=== PATIENT | female | born 1965 | race Caucasian/White ===

== ENCOUNTER 2022-08-02 17:26 | Emergency (ER) | payer BC, SELFPAY ==
[2022-08-02 17:33] VITALS: BP 123/76; PULSE 130; RESP 22; TEMP 36.4; O2SAT 100; BMI 23.8
--- NOTE | 2022-08-02 17:45 | DI.RAD.S_ITS ---
PROCEDURE: XR KNEE LT 3V INDICATIONS: fall with knee pain TECHNIQUE: Three views of the knee were acquired. COMPARISON: None. FINDINGS: Bones: Difficulty positioning the patient appropriately. There is a cortical irregularity along the lateral aspect of the distal femoral condyle which is of uncertain chronicity. There is an oblique lucent fracture plane across the proximal fibular metadiaphysis with bridging callus. Mild depression along the medial aspect of the lateral tibial plateau without associated visible fracture plane. Soft tissues: No joint effusion. No suspicious soft tissue calcifications. IMPRESSION: 1. Distal lateral condylar fracture cannot be excluded, may be obscured by suboptimal positioning. 2. Fibular fracture of uncertain chronicity, probably chronic and nonunited, less likely acute on chronic fracture. 3. Minor depression of the lateral tibial plateau may be due to positioning. 4. Lack of significant joint effusion suggests these may be chronic injuries. If there is no improvement conservative management, consider cross-sectional imaging. Dictated by: Patt Shah M.D. on 08/02/2022 at 17:28 Approved by: Patt Shah M.D. on 08/02/2022 at 17:34
[2022-08-02] MEDS: HYDROMORPHONE 0.5 MG INJ IV (17:47)
[2022-08-02] MEDS: ONDANSETRON 4 MG/2 ML INJ IV ×2 (17:47→19:46)
--- NOTE | 2022-08-02 18:47 | ED.LOWEXIN ---
HPI - Extremity Injury (Lower) General Chief Complaint: Extremity Injury, Lower Stated Complaint: Left leg pain/numbness after fall Time Seen by Provider: 08/02/22 17:45 Source: patient Mode of arrival: EMS Limitations: no limitations History of Present Illness HPI Narrative: Patient is a 56-year-old female here for evaluation of a left knee injury. It was reported that she was stepping outside of a boat onto the wheel well of the trailer. States she had immediate discomfort in her left knee. States she did not jump out of the boat. She just stepped out of the boat. She states she then did fall but the pain in her left knee was prior to the fall. She reports no other injuries from the event. Has been unable to stand and walk since then. Has had very significant discomfort around her left knee. She reports no ankle pain. No hip pain. Related Data Previous Rx's Medication Instructions Recorded ketorolac 10 mg tablet 10 mg PO Q6HP PRN #15 tabs 06/05/17 ondansetron 4 mg disintegrating 4 mg sublingual Q6HP PRN ##20 06/05/17 tablet (Zofran ODT) ketorolac 10 mg tablet 10 mg PO Q6H PRN pain 5 days #20 08/02/22 tabs Allergies Allergy/AdvReac Type Severity Reaction Status Date / Time codeine Allergy Verified 08/02/22 17:33 morphine Allergy Verified 08/02/22 17:33 Penicillins Allergy Verified 08/02/22 17:33 Review of Systems Constitutional Constitutional: Reports system reviewed and no additional complaints, except as documented Musculoskeletal Musculoskeletal: Reports system reviewed and no additional complaints, except as documented Integumentary/Breasts Skin/Breast: Reports system reviewed and no additional complaints, except as documented Neurologic Neurologic: Reports system reviewed and no additional complaints, except as documented Hematologic/Lymphatic On Anticoagulants: No Patient History Social History Smoking Status: Unknown if ever smoked Smoking Status: Unknown if ever smoked alcohol intake frequency: holidays/special occasions only Substance Use Type: does not use Exam Initial Vital Signs Initial Vital Signs: Vital Signs Temperature 97.6 F 08/02/22 17:33 Pulse Rate 130 H 08/02/22 17:33 Respiratory Rate 22 08/02/22 17:33 Blood Pressure 123/76 08/02/22 17:33 Pulse Oximetry 100 08/02/22 17:33 Oxygen Delivery Method Room Air 08/02/22 17:33 Const General: cooperative and No ill appearing HENMT Head: normal to inspection and normocephalic Cardio Pulses: dorsalis pedis present on the left Skin General: no rashes or lesions noted Neuro Sensory Exam: no sensory deficits noted Extrem Other: Left ankle and left lower leg and also left hip are unremarkable. She is very significant discomfort with any palpation or movement of the left knee. Unable to do any functional testing of her ligaments. Right lower extremity is unremarkable. Procedures Orthopedic Splinting/Casting Injury #1: Side: left Lower Extremity Injury Location: knee Lower Extremity Immobilizer: knee immobilizer Other Orthopedic Equipment: crutches Post splinting neuro exam: intact Post splinting vascular exam: intact Placed by: Nursing Course Orders Ordered: ED Orders 08/02/22 18:50 CT angio LE LT Stat Discontinued Medications Hydromorphone HCl (Hydromorphone 0.5 Mg Inj) 0.5 mg IV NOW ONE Stop: 08/02/22 17:46 Last Admin: 08/02/22 17:47 Dose: 0.5 mg Documented By: KATIE Acetaminophen (Ofirmev) 1,000 mg in 100 mls @ 400 mls/hr IV NOW ONE Stop: 08/02/22 19:54 Last Infusion: 08/02/22 21:29 Dose: 0 mls/hr Documented By: Admin: 08/02/22 19:46 Dose: 400 mls/hr Documented By: VIKTOR Ibuprofen (Ibuprofen 400 Mg Tablet) 800 mg PO NOW ONE Stop: 08/02/22 18:52 Last Admin: 08/02/22 19:36 Dose: Not Given Documented By: VIKTOR Ketorolac Tromethamine (Ketorolac 30 Mg/Ml Vial) 30 mg IV NOW ONE Stop: 08/02/22 19:36 Last Admin: 08/02/22 19:47 Dose: Not Given Documented By: VIKTOR Ondansetron HCl (Ondansetron 4 Mg/2 Ml Inj) 4 mg IV NOW ONE Stop: 08/02/22 17:46 Last Admin: 08/02/22 17:47 Dose: 4 mg Documented By: KATIE Ondansetron HCl (Ondansetron 4 Mg/2 Ml Inj) 4 mg IV NOW ONE Stop: 08/02/22 19:36 Last Admin: 08/02/22 19:46 Dose: 4 mg Documented By: SB Vital Signs Vital signs: Vital Signs - 8 hr 08/02/22 20:00 08/02/22 21:25 Pulse Rate 91 H 86 Respiratory Rate 16 16 Blood Pressure 139/72 112/75 Pulse Oximetry 98 100 Oxygen Delivery Method Room Air Room Air MDM - Extremity Injury (Lower) Lab Data Attestation: I reviewed the patient's lab results. 08/02/22 17:50 08/02/22 17:50 Labs: Lab Results 08/02/22 08/02/22 Range/Units 17:50 17:50 WBC 7.5 (4.5-11.0) X10^3/uL RBC 4.20 (4.0-5.2) X10^6/uL Hgb 12.7 (12.0-16.0) g/dL Hct 36.9 (36-46) % MCV 87.8 (80-100) fL MCH 30.2 (26-34) PG MCHC 34.4 (30-36) % RDW 13.4 (11.6-14.8) % Plt Count 198 (150-400) X10^3/uL Neut % (Auto) 52.0 (50-75) % Lymph % (Auto) 39.2 (25-40) % Lyon % (Auto) 7.2 (3-14) % Eos % (Auto) 0.7 L (2-4) % Baso % (Auto) 0.9 (0-2) % Neut # (Auto) 3900 (6852-4866) /uL Lymph # (Auto) 2900 (5550-5346) /uL Lyon # (Auto) 500 (0-900) /uL Eos # (Auto) 100 (0-450) /uL Baso # (Auto) 100 (0-100) /uL Sodium 138 (137-145) mmol/L Potassium 3.7 (3.4-5.1) mmol/L Chloride 106 (98-107) mmol/L Carbon Dioxide 19 L (22-32) mmol/L BUN 23 H (7-17) mg/dL Creatinine 0.79 (0.52-1.04) mg/dL Estimated GFR > 60 (>60) mL/min BUN/Creatinine Ratio 29.1 H (6-22) Glucose 107 H (70-100) mg/dL Calcium 9.4 (8.4-10.2) mg/dL Imaging Data Extremity x-ray #1: Radiologist's Impression: PROCEDURE:? XR KNEE LT 3V ? INDICATIONS:? fall with knee pain ? TECHNIQUE:? Three views of the knee were acquired.? ? COMPARISON:? None. ? FINDINGS:? ? Bones:? Difficulty positioning the patient appropriately.? There is a cortical irregularity along the lateral aspect of the distal femoral condyle which is of uncertain chronicity.? There is an oblique lucent fracture plane across the proximal fibular metadiaphysis with bridging callus.? Mild depression along the medial aspect of the lateral tibial plateau without associated visible fracture plane. ? Soft tissues:? No joint effusion.? No suspicious soft tissue calcifications.? ? ? IMPRESSION:? ? 1. Distal lateral condylar fracture cannot be excluded, may be obscured by suboptimal positioning. ? 2. Fibular fracture of uncertain chronicity, probably chronic and nonunited, less likely acute on chronic fracture. ? 3. Minor depression of the lateral tibial plateau may be due to positioning. ? 4. Lack of significant joint effusion suggests these may be chronic injuries.? If there is no improvement conservative management, consider cross-sectional imaging. L leg CTA: Radiologist's Impression: PROCEDURE:? CT ANGIO LE LT ? INDICATIONS:? possible reduced L knee dislocation and fracture ? TECHNIQUE:? After the administration of intravenous contrast, 2.5 mm sections acquired from T12 to the feet, with optional delayed image acquisition from the knees to the feet.? 3-dimensional maximum intensity projection (MIP) coronal and sagittal reformats, and/or 3-dimensional volume rendering reformatting was then performed.? For radiation dose reduction, the following was used:? automated exposure control.? ? COMPARISON:? [facility], CR, XR KNEE LT 3V, 08/02/2022, 17:43.? [facility], CT, ABDOMEN/PELVIS WITH CONTRAST, 06/05/2017, 19:49. ? FINDINGS:? Image quality:? Excellent.? ? Extravascular tissues:? No free fluid in the pelvis.? Anteverted uterus. ? Vascular:? External iliac artery is patent.? Profundus is patent.? Femoral artery is patent.? Popliteal artery is patent.? There is three-vessel runoff in the calf.? No arterial extravasation.? No dissection demonstrated.? Veins are not opacified.? No obvious contour abnormality. ? Left lower extremity bones:? No hip fracture.? No hip dislocation.? No femoral shaft fracture.? ? Fracture at the lateral tibial plateau with minimal displacement.? Mild irregularity at the posterior lateral corner.? No significant depression.? Oblique fracture through the proximal fibula.? ? Moderate knee joint effusion with lipohemarthrosis.? Low-density fluid collection at the medial aspect of the popliteal fossa superficially superficially measuring 5.6 cm in craniocaudal dimension, ().? This has the appearance the Jackman's cyst.? Mild swelling at the lateral aspect of the knee. ? No mid or distal tibial fracture.? No distal fibular fracture.? No ankle fracture. ? IMPRESSION:? 1. Lateral tibial plateau fracture. ? 2. Proximal fibula fracture. ? 3. Moderate knee joint effusion with lipohemarthrosis. ? 4. No arterial vascular injury. ? 5. Jackman's cyst.? MDM Narrative Medical decision making narrative: Initially patient had a proximal fibula fracture although the mechanism of what happened does not quite fit this. She states she did not jump. She just stepped out of the boat onto the wheel well. Given the sudden severe discomfort with just this type of movement I would have to have some suspicion that this is either a ligamentous injury for potentially she dislocated her knee or her patella which has subsequently reduced. Because of this a CTA was ordered. There is no vascular injury. This did show a tibial plateau fracture as well as the fibula fracture. She is neurovascularly intact. She was placed in a knee immobilizer. She states she feels much better in the knee immobilizer. I did discuss the case with Dr. Narayan with orthopedic surgery who stated that they knee immobilizer would be appropriate to make her nonweightbearing and because of the appearance of the tibial plateau fracture there is a strong possibility that she will not need surgery for any repair. I did discuss all this with the patient. We also discussed the possibility of a ligamentous injury although we are not going to be able to obtain an MRI given the time a day as it is not available at this time in the emergency department. Patient and expressed understanding and agreement. Patient states that she did not want pain medication stronger than Tylenol or ibuprofen. Discharge Plan Departure Patient Disposition: Home Clinical Impression: Fracture of left tibial plateau, Fibula upper end fracture Instructions: How to Use Crutches, How to Use a Knee Immobilizer, DI for Tibial Plateau Fracture Activity Restrictions/Additional Instructions: You do need to leave the knee immobilizer on like we discussed. You should be nonweightbearing and using the crutches. I recommend that you contact the orthopedic doctors of the number provided below for a follow-up. Return to the emergency department for new or worsening symptoms. Prescriptions: New ketorolac 10 mg tablet 10 mg PO Q6H PRN (Reason: pain) 5 Days Qty: 20 0RF No Action ketorolac 10 MG tablet 10 mg PO Q6HP PRNQty: 15 0RF ondansetron [Zofran ODT] 4 MG tablet,disintegrating 4 mg Sublingual Q6HP PRNQty: 20 0RF Referrals: Paulie Ferrer MD [Primary Care Provider] - Hina Narayan MD [Physician] - Stand Alone Forms: Patient Portal/API
--- NOTE | 2022-08-02 18:50 | DI.CT.S_ITS ---
PROCEDURE: CT ANGIO LE LT INDICATIONS: possible reduced L knee dislocation and fracture TECHNIQUE: After the administration of intravenous contrast, 2.5 mm sections acquired from T12 to the feet, with optional delayed image acquisition from the knees to the feet. 3-dimensional maximum intensity projection (MIP) coronal and sagittal reformats, and/or 3-dimensional volume rendering reformatting was then performed. For radiation dose reduction, the following was used: automated exposure control. COMPARISON: [facility], CR, XR KNEE LT 3V, 08/02/2022, 17:43. [facility], CT, ABDOMEN/PELVIS WITH CONTRAST, 06/05/2017, 19:49. FINDINGS: Image quality: Excellent. Extravascular tissues: No free fluid in the pelvis. Anteverted uterus. Vascular: External iliac artery is patent. Profundus is patent. Femoral artery is patent. Popliteal artery is patent. There is three-vessel runoff in the calf. No arterial extravasation. No dissection demonstrated. Veins are not opacified. No obvious contour abnormality. Left lower extremity bones: No hip fracture. No hip dislocation. No femoral shaft fracture. Fracture at the lateral tibial plateau with minimal displacement. Mild irregularity at the posterior lateral corner. No significant depression. Oblique fracture through the proximal fibula. Moderate knee joint effusion with lipohemarthrosis. Low-density fluid collection at the medial aspect of the popliteal fossa superficially superficially measuring 5.6 cm in craniocaudal dimension, (9/121). This has the appearance the Jackman's cyst. Mild swelling at the lateral aspect of the knee. No mid or distal tibial fracture. No distal fibular fracture. No ankle fracture. IMPRESSION: 1. Lateral tibial plateau fracture. 2. Proximal fibula fracture. 3. Moderate knee joint effusion with lipohemarthrosis. 4. No arterial vascular injury. 5. Jackman's cyst. Dictated by: Pepe Nowak M.D. on 08/02/2022 at 20:20 Approved by: Pepe Nowak M.D. on 08/02/2022 at 20:35
[2022-08-02 18:58] LABS: Add Manual Diff / Slide Review NO; Basophils Absolute Auto 100 /uL (0-100); Basophils Percent Auto 0.9 % (0-2); Eosinophils Absolute Auto 100 /uL (0-450); Eosinophils Percent Auto 0.7 % (2-4); Hematocrit 36.9 % (36-46); Hemoglobin 12.7 g/dL (12.0-16.0); Lymphocytes Absolute Auto 2900 /uL (1100-4500); Lymphocytes Percent Auto 39.2 % (25-40); Mean Corpuscular HGB Conc 34.4 % (30-36); Mean Corpuscular Hemoglobin 30.2 PG (26-34); Mean Corpuscular Volume 87.8 fL (80-100); Monocytes Absolute Auto 500 /uL (0-900); Monocytes Percent Auto 7.2 % (3-14); Neutrophils Absolute Auto 3900 /uL (1500-7000); Platelet Count 198 X10^3/uL (150-400); Red Cell Distribution Width 13.4 % (11.6-14.8); White Blood Cell Count 7.5 X10^3/uL (4.5-11.0)
[2022-08-02 19:02] LABS: BUN Creatinine Ratio 29.1 (6-22); Blood Urea Nitrogen 23 mg/dL (7-17); Calcium 9.4 mg/dL (8.4-10.2); Carbon Dioxide 19 mmol/L (22-32); Chloride 106 mmol/L (98-107); Estimated Glomerular Filt Rate > 60 mL/min (>60); Glucose 107 mg/dL (70-100); HEMOLYSIS < 15 (0-50); Potassium 3.7 mmol/L (3.4-5.1); Sodium 138 mmol/L (137-145)
[2022-08-02] MEDS: ACETAMINOPHEN IV 1,000 MG/100 ML VIAL 400 MG IV (19:46)
[2022-08-02 20:00] VITALS: BP 139/72; PULSE 91; RESP 16; O2SAT 98
[2022-08-02 21:25] VITALS: BP 112/75; PULSE 86; RESP 16; O2SAT 100
== END 2022-08-02 23:08 | disposition home or self-care (01) ==
PROVIDERS: Emergency Provider Emergency Medicine; PCP Family Medicine
DX: S82.142A Displaced bicondylar fracture of left tibia, initial encounter for closed fracture (principal); S82.832A Other fracture of upper and lower end of left fibula, initial encounter for closed fracture; X58.XXXA Exposure to other specified factors, initial encounter
CPT/HCPCS: 36415; 73562; 73706; 80048; 85025; 96365; 96366; 96375; 96376; 99284; J0131; J1170; J2405; Q9967